=== PATIENT | male | born 1980 | race Caucasian/White ===

== ENCOUNTER → 2021-02-28 07:19 | Outpatient (CLI) | payer OTHER, SELFPAY ==
[2021-02-28 08:01] LABS: Add Manual Diff / Slide Review NO; Basophils Absolute Auto 0 /uL (0-100); Basophils Percent Auto 0.5 % (0-2); Eosinophils Absolute Auto 300 /uL (0-450); Eosinophils Percent Auto 5.5 % (2-4); Hematocrit 46.9 % (41-53); Hemoglobin 15.9 g/dL (13.5-17.5); Lymphocytes Absolute Auto 1800 /uL (1100-4500); Lymphocytes Percent Auto 31.7 % (25-40); Mean Corpuscular HGB Conc 33.9 % (30-36); Mean Corpuscular Hemoglobin 30.3 PG (26-34); Mean Corpuscular Volume 89.4 fL (80-100); Monocytes Absolute Auto 400 /uL (0-900); Monocytes Percent Auto 6.7 % (3-14); Neutrophils Absolute Auto 3100 /uL (1500-7000); Neutrophils Percent Auto 55.6 % (50-75); Platelet Count 286 X10^3/uL (150-400); Red Blood Cell Count 5.24 X10^6/uL (4.5-5.9); Red Cell Distribution Width 13.2 % (11.6-14.8); White Blood Cell Count 5.5 X10^3/uL (4.5-11.0)
[2021-02-28 08:11] LABS: Alanine Aminotransferase 22 IU/L (<50); Albumin 4.4 g/dL (3.5-5.0); Albumin Globulin Ratio 1.6 (1.0-2.8); Alkaline Phosphatase 58 U/L (38-126); Aspartate Aminotransferase 23 IU/L (17-59); BUN Creatinine Ratio 11.5 (6-22); Bilirubin Total 0.6 mg/dL (0.2-1.3); Blood Urea Nitrogen 11 mg/dL (9-20); Calcium 9.5 mg/dL (8.4-10.2); Carbon Dioxide 33 mmol/L (22-32); Chloride 100 mmol/L (98-107); Estimated Glomerular Filt Rate > 60.0 mL/min (>60); Globulin 2.8 g/dL (1.7-4.1); Glucose 140 mg/dL (70-100); HEMOLYSIS < 15 (0-50); Potassium 3.8 mmol/L (3.4-5.1); Sodium 139 mmol/L (137-145); Total Protein 7.2 g/dL (6.3-8.2)
[2021-02-28 08:26] LABS: Free T4, Direct Thyroxine 1.18 ng/dL (0.78-2.19)
[2021-02-28 08:40] LABS: Thyroid Stimulating Hormone 1.47 uIU/mL (0.47-4.68)
[2021-03-01 07:44] LABS: Triiodothyronine T3 Total 94 ng/dL (71-180)
== END ==
PROVIDERS: Referring Provider Physician Assistant; Visit Provider Physician Assistant
DX: R10.84 Generalized abdominal pain (principal); E05.90 Thyrotoxicosis, unspecified without thyrotoxic crisis or storm
CPT/HCPCS: 36415; 80053; 84439; 84443; 84480; 85025

== ENCOUNTER → 2021-04-12 16:45 | Outpatient (CLI) | payer OTHER, SELFPAY ==
[2021-04-12 17:45] LABS: Hemoglobin A1C% w Est Avg Glu 5.2 % (4.0-6.0)
== END ==
PROVIDERS: PCP Physician Assistant; Referring Provider Physician Assistant; Visit Provider Physician Assistant
DX: R73.9 Hyperglycemia, unspecified (principal)
CPT/HCPCS: 36415; 83036

== ENCOUNTER → 2021-08-17 10:00 | Outpatient (CLI) | payer OTHER, SELFPAY ==
--- NOTE | 2021-08-17 10:02 | DI.RAD.S_ITS ---
PROCEDURE: XR CHEST 2V INDICATIONS: ABNORMAL ekg READING TECHNIQUE: 2 views of the chest were acquired. COMPARISON: None. FINDINGS: Surgical changes and devices: None. Lungs and pleura: Lungs are clear. No pleural effusions or pneumothorax. Mediastinum: Mediastinal contours are normal. Heart size is normal. Bones and chest wall: No suspicious bony abnormalities. Soft tissues appear unremarkable. IMPRESSION: Normal two view chest x-ray Approved by: Skip Rosas M.D. on 08/17/2021 at 12:37
[2021-08-17 10:46] LABS: Troponin I < 0.012 ng/mL (0.01-0.034)
== END ==
PROVIDERS: PCP Student in an Organized Health Care Education/Training Program; Referring Provider Student in an Organized Health Care Education/Training Program; Visit Provider Student in an Organized Health Care Education/Training Program
DX: R94.31 Abnormal electrocardiogram [ECG] [EKG] (principal)
CPT/HCPCS: 71046; 84484

== ENCOUNTER 2021-08-17 15:57 | Emergency (ER) | payer OTHER, SELFPAY ==
[2021-08-17] VITALS (8 sets, daily range): BP systolic 116–151; BP diastolic 81–89; PULSE 75–103; RESP 12–20; TEMP 37; O2SAT 90–97; BMI 25.6
[2021-08-17 17:14] LABS: Add Manual Diff / Slide Review NO; Basophils Absolute Auto 0 /uL (0-100); Basophils Percent Auto 0.2 % (0-2); Eosinophils Absolute Auto 100 /uL (0-450); Eosinophils Percent Auto 1.3 % (2-4); Hematocrit 45.4 % (41-53); Hemoglobin 15.5 g/dL (13.5-17.5); Lymphocytes Absolute Auto 1600 /uL (1100-4500); Lymphocytes Percent Auto 14.4 % (25-40); Mean Corpuscular HGB Conc 34.2 % (30-36); Mean Corpuscular Hemoglobin 30.4 PG (26-34); Mean Corpuscular Volume 88.7 fL (80-100); Monocytes Absolute Auto 800 /uL (0-900); Monocytes Percent Auto 7.4 % (3-14); Neutrophils Absolute Auto 8500 /uL (1500-7000); Neutrophils Percent Auto 76.7 % (50-75); Platelet Count 297 X10^3/uL (150-400); Red Blood Cell Count 5.12 X10^6/uL (4.5-5.9); White Blood Cell Count 11.1 X10^3/uL (4.5-11.0)
[2021-08-17 17:23] LABS: Alanine Aminotransferase 22 IU/L (<50); Albumin 4.7 g/dL (3.5-5.0); Albumin Globulin Ratio 1.4 (1.0-2.8); Alkaline Phosphatase 68 U/L (38-126); Aspartate Aminotransferase 27 IU/L (17-59); BUN Creatinine Ratio 13.8 (6-22); Bilirubin Total 0.8 mg/dL (0.2-1.3); Blood Urea Nitrogen 12 mg/dL (9-20); Calcium 9.4 mg/dL (8.4-10.2); Carbon Dioxide 28 mmol/L (22-32); Chloride 105 mmol/L (98-107); Creatine Kinase 57 U/L (55-170); Estimated Glomerular Filt Rate > 60.0 mL/min (>60); Globulin 3.3 g/dL (1.7-4.1); Glucose 109 mg/dL (70-100); HEMOLYSIS < 15 (0-50); Lipase 122 U/L (23-300); Magnesium 2.1 mg/dL (1.6-2.3); Potassium 3.9 mmol/L (3.4-5.1); Sodium 141 mmol/L (137-145)
[2021-08-17 17:35] LABS: Troponin I < 0.012 ng/mL (0.01-0.034)
--- NOTE | 2021-08-17 17:44 | PC.NURSE ---
returning from the restroom, where she had to ambulate about [address]
--- NOTE | 2021-08-17 17:54 | ED_ITS ---
HPI - Chest Pain General Chief Complaint: Chest Pain Stated Complaint: chest pain, abn ekg this am Time Seen by Provider: 08/17/21 17:44 Source: patient Mode of arrival: Ambulatory Limitations: no limitations Limitations: no limitations History of Present Illness HPI narrative: The patient was seen this morning by his PCM for an annual physical. He mentioned to his doctor that he has occasional very brief sharp stabbing pain in the left anterior chest. There are concerns raised about an EKG in clinic. He has a stress test scheduled for tomorrow. He has no history of CAD. He has a history of hyperthyroidism, he is now off medications. He has no hypertension, diabetes or hyperlipidemia. He does not use tobacco. weeks ago he started running 1 mi daily, he has no dyspnea or chest discomfort when running. He is currently in the process of buying a house. After going home from the physical he developed tightness in his anterior chest. There was some radiation discomfort to the left arm. He thinks this may be stress. Pain lasted 15-20 minutes. He is now asymptomatic. He denies recent illness. He has ongoing concerns about his hyperthyroidism but he has no other clinical issues of which is where. Related Data Allergies Allergy/AdvReac Type Severity Reaction Status Date / Time No Known Drug Allergies Allergy Verified 08/17/21 16:03 Review of Systems Constitutional Constitutional: Reports as per HPI, Denies chills, Denies fever(s) and Denies headache(s) Eyes Eyes: Denies blurry vision and Denies change in vision ENT Ears, Nose, Mouth, and Throat: Denies vertigo, Denies dizziness, Denies facial pain, Denies headache(s), Denies neck pain, Denies sinus pressure and Denies sore throat Cardiovascular Cardiovascular: Reports as per HPI, Reports chest pain, Denies syncope, Denies rapid heart rate, Denies edema, Denies lightheadedness and Denies dyspnea Respiratory Respiratory: Denies chest congestion and Denies dyspnea Gastrointestinal Gastrointestinal: Denies abdominal pain and Denies nausea Comments: No history of GERD. Musculoskeletal Musculoskeletal: Denies back pain, Denies myalgias and Denies neck pain Integumentary/Breasts Skin/Breast: Denies rash Neurologic Neurologic: Denies confusion, Denies vertigo, Denies dizziness, Denies syncope and Denies headache(s) Psychiatric Psychiatric: Denies anxiety and Denies confusion Hematologic/Lymphatic On Anticoagulants: No Patient History Medical History (Updated 08/17/21 @ 18:03 by Aaron Benavides MD) Hyperthyroidism Surgical History (Updated 08/17/21 @ 17:58 by Aaron Benavides MD) No significant past surgical history Social History Smoking Status: Never smoker Smoking Status: Never smoker alcohol intake frequency: 0-2 drinks per day Alcohol type: beer Substance Use Type: does not use Exam Initial Vital Signs Initial Vital Signs: Vital Signs Temperature 98.6 F 08/17/21 15:59 Pulse Rate 89 08/17/21 15:59 Respiratory Rate 18 08/17/21 15:59 Blood Pressure 129/89 08/17/21 15:59 Pulse Oximetry 96 08/17/21 15:59 Const General: cooperative, healthy appearing, comfortable and No acute distress Nutritional Appearance: average body habitus HENMT Head: normal to inspection, normocephalic and atraumatic Face and sinus: normal facial exam Mouth: oral mucosae normal Throat: posterior oropharynx normal Eyes General: appearance normal, both eyes and all related structures Pupils: PERRL EOM: EOM intact bilaterally Neck Neck: normal visual inspection and No JVD Thyroid: thyroid normal Chest Chest: No tenderness Resp Effort & Inspection: normal respiratory effort Auscultation: clear to auscultation bilaterally Cardio Rate: regular rate Rhythm: regular rhythm Heart Sounds: S1 normal, S2 normal, no murmurs and no rubs Pulses: brachial pulses present GI Inspection: normal to inspection Palpation: soft and No no hepatosplenomegaly Back/Spine/Pelvis Back: normal to inspection Skin General: no rashes or lesions noted Neuro General: patient alert, patient awake, patient oriented x3 and no focal motor deficits Extrem General: normal to inspection, full ROM, no pedal edema and no calf tenderness Psych Mental Status: mental status grossly normal Course Course Course Narrative: Cardiac evaluation is benign. EKG is normal. His chest discomfort is vague, he suggest anxiety may be involved. His PCM has apparently made arrangements for stress test. I did start him on aspirin prior to discharge. Orders Ordered: Discontinued Medications Aspirin (Aspirin 81 Mg Chew Tab) 324 mg PO NOW ONE Stop: 08/17/21 17:54 Last Admin: 04/06/22 18:19 Dose: 324 mg Documented by: TREVON Vital Signs Vital signs: Vital Signs - 8 hr 08/17/21 15:59 08/17/21 16:19 08/17/21 16:20 Temperature 98.6 F Pulse Rate 89 103 H 94 H Respiratory Rate 18 Blood Pressure 129/89 151/88 H Pulse Oximetry 96 96 97 08/17/21 16:30 08/17/21 17:00 08/17/21 17:20 Temperature Pulse Rate 81 83 Respiratory Rate 12 15 20 Blood Pressure 121/81 116/84 Pulse Oximetry 96 95 90 L 08/17/21 17:30 Temperature Pulse Rate 81 Respiratory Rate 14 Blood Pressure 128/81 Pulse Oximetry 96 MDM - Chest Pain Lab Data Result diagrams: 08/17/21 16:55 08/17/21 16:55 Labs: Lab Results 08/17/21 08/17/21 Range/Units 16:55 16:55 WBC 11.1 H (4.5-11.0) X10^3/uL RBC 5.12 (4.5-5.9) X10^6/uL Hgb 15.5 (13.5-17.5) g/dL Hct 45.4 (41-53) % MCV 88.7 (80-100) fL MCH 30.4 (26-34) PG MCHC 34.2 (30-36) % RDW 14.0 (11.6-14.8) % Plt Count 297 (150-400) X10^3/uL Neut % (Auto) 76.7 H (50-75) % Lymph % (Auto) 14.4 L (25-40) % [place] % (Auto) 7.4 (3-14) % Eos % (Auto) 1.3 L (2-4) % Baso % (Auto) 0.2 (0-2) % Neut # (Auto) 8500 H (1847-6956) /uL Lymph # (Auto) 1600 (8427-4738) /uL [place] # (Auto) 800 (0-900) /uL Eos # (Auto) 100 (0-450) /uL Baso # (Auto) 0 (0-100) /uL Sodium 141 (137-145) mmol/L Potassium 3.9 (3.4-5.1) mmol/L Chloride 105 (98-107) mmol/L Carbon Dioxide 28 (22-32) mmol/L BUN 12 (9-20) mg/dL Creatinine 0.87 (0.66-1.25) mg/dL Estimated GFR > 60.0 (>60) mL/min BUN/Creatinine Ratio 13.8 (6-22) Glucose 109 H (70-100) mg/dL Calcium 9.4 (8.4-10.2) mg/dL Magnesium 2.1 (1.6-2.3) mg/dL Total Bilirubin 0.8 (0.2-1.3) mg/dL AST 27 (17-59) IU/L ALT 22 (<50) IU/L Alkaline Phosphatase 68 (38-126) U/L Total Creatine Kinase 57 (55-170) U/L CK-MB (CK-2) TNP CK-MB (CK-2) Rel Index TNP Troponin I < 0.012 (0.01-0.034) ng/mL Total Protein 8.0 (6.3-8.2) g/dL Albumin 4.7 (3.5-5.0) g/dL Globulin 3.3 (1.7-4.1) g/dL Albumin/Globulin Ratio 1.4 (1.0-2.8) Lipase 122 (23-300) U/L Imaging Data Chest x-ray: Radiologist's Impression: Normal ECG Data Attestation: I personally reviewed and interpreted this ECG as follows: (Normal sinus rhythm rate 91 beats per minute. Normal intervals. No ectopy. No acute ST T wave changes.) Discharge Plan Departure Patient Disposition: Home Clinical Impression: Atypical chest pain Instructions: DI for Atypical Chest Pain Activity Restrictions/Additional Instructions: Your current cardiac evaluation shows no evidence of CAD, heart attack. I recommend 1 baby aspirin daily. Your are correct stress/anxiety may account for some of your symptoms. I would not jump to that conclusion, however. The stress test scheduled for tomorrow is quite important. This should clearly define whether or not you have an issue with your heart. If you have return of chest discomfort prior to doing your test more, return the ER for ongoing evaluation. Referrals: Wendy Walker MD [Primary Care Provider] -
[2021-08-17] MEDS: ASPIRIN 81 MG CHEW TAB 324 MG PO (18:19)
== END 2021-08-17 18:28 | disposition home or self-care (01) ==
PROVIDERS: Emergency Medicine; Emergency Provider Emergency Medicine; PCP Student in an Organized Health Care Education/Training Program
DX: R07.89 Other chest pain (principal); R94.31 Abnormal electrocardiogram [ECG] [EKG]
CPT/HCPCS: 36415; 71046; 80053; 82550; 83690; 83735; 84484; 85025; 93005; 93010; 99283; 99284

== ENCOUNTER 2021-08-21 19:31 | Emergency (ER) | payer OTHER, SELFPAY ==
[2021-08-21] VITALS (8 sets, daily range): BP systolic 123–164; BP diastolic 79–100; PULSE 77–97; RESP 12–24; TEMP 37.1; O2SAT 96–98; BMI 25.6
--- NOTE | 2021-08-21 20:04 | ED.CHESTPAIN ---
HPI - Chest Pain General Chief Complaint: Chest Pain Stated Complaint: poss. panic attack; lt arm heaviness/numbness Time Seen by Provider: 08/21/21 19:40 Source: patient Mode of arrival: Ambulatory Limitations: no limitations History of Present Illness HPI narrative: 41-year-old gentleman with a history of hyperthyroidism, increased psychosocial stress was in the process of buying house, getting back into prior workout routines and was seen by his primary care physician about a week ago. She made a comment about an EKG suggesting that he may have had a prior heart attack and has recommended a stress test to be set up. This is caused him significant anxiety and he is concerned that some of the transient musculoskeletal pain that he feels across his chest wall may be another heart attack. He has had episodes of increased anxiety generally not feeling well nausea burning all more noticeable since his more recent visit. He was seen in the emergency department on August 17 with similar complaints. Does not have a family history for heart disease is at an appropriate BMI, no prior diagnosis of heart disease, hypertension, hyperlipidemia or stroke. He notes that when he is concerned about the symptoms he is having he can become somewhat diaphoretic but he is not typically short of breath and none of this is impairing his usual daily activity. Related Data Allergies Allergy/AdvReac Type Severity Reaction Status Date / Time No Known Drug Allergies Allergy Verified 08/17/21 16:03 Review of Systems Review of Systems Narrative: Remainder of complete review of systems is otherwise unremarkable except for that included in the HPI. Patient History Medical History Hyperthyroidism Surgical History No significant past surgical history Social History Smoking Status: Never smoker Smoking Status: Never smoker alcohol intake frequency: 3 or more drinks per day Alcohol type: beer Substance Use Type: does not use Exam Initial Vital Signs Initial Vital Signs: Vital Signs Temperature 98.7 F 08/21/21 19:36 Pulse Rate 97 H 08/21/21 19:36 Respiratory Rate 20 08/21/21 19:36 Blood Pressure 164/99 H 08/21/21 19:36 Pulse Oximetry 96 08/21/21 19:36 General: Healthy appearing, in no acute distress. Able to give a complete and coherent history. Well-nourished well-developed HEENT: Moist mucous membranes, normal sclera with reactive pupils, Neck: No JVD, supple Respiratory: Lungs are clear to auscultation, no wheezing no rales no rhonchi. Full and symmetrical air movement Cardiac: Regular rate and rhythm no murmurs no bruits Abdomen: Soft, nontender, good bowel tones, no flank pain Skin: Warm and dry, no rashes Neurologic: Grossly neurologically intact with no obvious asymmetries or abnormalities Extremities: No trauma, well perfused Psych: Cooperative, appropriate insight and affect Course Orders Ordered: ED Orders 08/21/21 20:30 Trop I [Troponin I] Stat Vital Signs Vital signs: Vital Signs - 8 hr 08/21/21 22:00 08/21/21 22:15 Pulse Rate 79 78 Respiratory Rate 24 21 Blood Pressure 127/85 136/90 Pulse Oximetry 96 MDM - Chest Pain Lab Data Labs: Lab Results 08/21/21 Range/Units 20:30 Troponin I < 0.012 (0.01-0.034) ng/mL ECG Data Interpretation: Sinus rhythm at a rate of 90 Minor sinus arrhythmia Normal intervals and normal axis No acute ischemic changes MDM Narrative Medical decision making narrative: 41-year-old gentleman concerned with fleeting chest pain, nausea, dizziness after recent EKG that mentioned he may have had a heart attack. EKG today does not suggest prior ND. We did review extensively some of the small changes that can be seen on EKGs. I did encourage him to follow through with the cardiac stress test that is currently being ordered however I also reassured him that I do not believe this is his heart nor is he at immediate risk for an acute heart attack. Full blood workup was done on August 17 and was unremarkable. Troponin only is repeated today and is equally unremarkable. Reassurance is given, questions answered and he is safe for home discharge Discharge Plan Departure Patient Disposition: Home Clinical Impression: Atypical chest pain, Stress Instructions: Tips for Reducing Stress in Your Life, DI for Atypical Chest Pain Activity Restrictions/Additional Instructions: Thank you for coming in today Your physical exam, EKG and blood work were absolutely reassuring. I do not see any evidence of an acute heart attack this evening or a prior heart attack on the EKG done in the ER today. Given the workup that we have done so far I believe it is safe for you to continue your exercise routine. I would encourage you to look at callus willing resources that may be available to you through work. Considering other lifetime stress reduction choices such as meditation (there are a number of very good and free meditation apps available), massage, healthy eating choices and regular activity. If you have new or worsening symptoms, please feel free to return to the emergency department Referrals: Wendy Walker MD [Primary Care Provider] -
[2021-08-21 21:05] LABS: Troponin I < 0.012 ng/mL (0.01-0.034)
== END 2021-08-21 22:20 | disposition home or self-care (01) ==
PROVIDERS: Emergency Provider Emergency Medicine; PCP Student in an Organized Health Care Education/Training Program
DX: R07.89 Other chest pain (principal); F43.9 Reaction to severe stress, unspecified
CPT/HCPCS: 36415; 84484; 93005; 93010; 99283

== ENCOUNTER → 2021-09-20 15:01 | Outpatient (CLI) | payer OTHER, SELFPAY ==
--- NOTE | 2021-09-20 | DI.NM.S_ITS ---
PROCEDURE: NM EXERCISE TREADMILL NON NUC COMPARISON: None. INDICATIONS: Palpitations FINDINGS: Rest ECG sinus rhythm. Sukhi protocol 13:09, peak HR 197 bpm (109% of peak predicted), maximum BP 166/94, 14.8 METS, [place] -6%. Stress ECG sinus tachycardia, no ST segment changes, no ectopy or arrhythmias. No chest pain or anginal equivalents with exercise. IMPRESSION: No evidence of exercise-induced ischemia or arrhythmia on ECG. Good exercise capacity. Normal blood pressure response to exercise. Dictated by: Elin Solano D.O. on 09/21/2021 at 14:38 Approved by: Elin Solano D.O. on 09/21/2021 at 14:40
== END ==
PROVIDERS: PCP Student in an Organized Health Care Education/Training Program; Referring Provider Student in an Organized Health Care Education/Training Program; Visit Provider Student in an Organized Health Care Education/Training Program
DX: R00.2 Palpitations (principal)
CPT/HCPCS: 93017

== ENCOUNTER → 2021-10-07 08:04 | Outpatient (CLI) | payer OTHER, SELFPAY ==
--- NOTE | 2021-10-07 08:05 | DI.ECHO.S_ITS ---
[facility] +---------+ [facility] +---------+ : : [address] : : : : [id number] : : : : Phone: [phone]+ Echocardiogram Report + + :Name: GEORGIE EDWARDS Study Date: 10/07/2021 Height: 75 in : :[facility] ReadingLocation: Weight: 200 lb : : Gender: Male BSA: 2.2 m2 : :: 1980 Age: 41 yrs BP: 126/90 mmHg: :Reason For Study: Palpitations : :Ordering Physician: BERNARDO, : :BOBBY Performed By: Grover Gutierrez : :Referring: BOBBY CHANG : + + Interpretation Summary 1) Normal left ventricular thickness, size, wall motion, and systolic function (EF 55-60%). 2) Normal right ventricular size and function. 3) No significant valvular abnormalities. 4) No prior Echo available for comparison. Procedure: A two-dimensional transthoracic echocardiogram with color flow and Doppler was performed. The study quality was technically adequate. There is no prior echocardiogram noted for this patient. The patient was in normal sinus rhythm during the exam. Left Ventricle: The left ventricle is normal in size and wall thickness. Left ventricular systolic function is normal. The ejection fraction is estimated to be 55-60%. There are no focal wall motion abnormalities. Diastolic parameters suggest probable normal left ventricular diastolic function and normal filling pressures. Right Ventricle: The right ventricle is normal in size and function. Atria: Both atria are normal in size. The interatrial septum grossly appears intact with no obvious evidence for an atrial septal defect. Mitral Valve: The mitral valve is normal in structure and function. There is trace mitral regurgitation. Aortic Valve: The aortic valve is normal in structure and function. There is no aortic valve stenosis. No aortic regurgitation is present. Tricuspid Valve: The tricuspid valve is normal in structure and function. There is a trace or physiologic amount of tricuspid regurgitation. Pulmonary artery pressures cannot be estimated because of the lack of a measurable TR jet velocity. Pulmonic Valve: The pulmonic valve is normal in structure and function. There is a trace or physiologic amount of pulmonic regurgitation. Great Vessels: The aortic root is normal size. The dimensions of the ascending aorta are normal. The IVC is of normal diameter and collapses greater than 50% with a sniff. This suggests a low right atrial pressure of 3 mm Hg. Pericardium/ Pleura There is no pericardial effusion. There is no pleural effusion. MMode/2D Measurements & Calculations LVIDd: 5.1 cm LVOT diam: 2.3 cm LVIDs: 3.3 cm Ao root diam: 3.3 cm FS: 35.9 % asc Aorta Diam: 3.1 cm IVSd: 0.84 cm LVPWd: 0.93 cm LV loyola. diameter/BSA (cm/m^2): 2.3 LV sys. diameter/BSA (cm/m^2): 1.5 LA A2 area: 14.9 cm2 RA long axis: 4.1 cm LA A4 area: 12.8 cm2 RA area: 13.8 cm2 LA length (vol): 4.1 cm RA vol: 39.4 ml LA vol: 39.0 ml RA : 17.9 ml/m2 LA vol index: 17.8 ml/m2 TAPSE: 2.5 cm Doppler Measurements & Calculations Ao V2 max: 112.4 cm/sec LVOT Max Dima: 94.0 cm/sec Ao V2 mean: 79.3 cm/sec LV V1 max P.5 mmHg Ao max P.0 mmHg LV V1 VTI: 18.5 cm Ao mean P.8 mmHg LINA(I,D): 3.9 cm2 Ao V2 VTI: 19.5 cm LINA(V,D): 3.4 cm2 sev ratio: 0.95 LINA indexed to BSA (cm^2/m^2): 1.8 MV E max dima: 73.5 cm/sec SV(LVOT): 75.4 ml MV A max dima: 58.0 cm/sec MV E/A: 1.3 Med Peak E' Dima: 10.9 cm/sec E/E' med: 6.7 Lat Peak E' Dima: 13.6 cm/sec E/E' lat: 5.4 E/e' average: 6.1 MV dec time: 0.19 sec Reading Physician:10:02 AM
== END ==
PROVIDERS: PCP Student in an Organized Health Care Education/Training Program; Referring Provider Student in an Organized Health Care Education/Training Program; Visit Provider Student in an Organized Health Care Education/Training Program
DX: R00.2 Palpitations (principal)
CPT/HCPCS: 93306

== ENCOUNTER → 2023-06-01 17:04 | Outpatient (CLI) | payer OTHER, SELFPAY ==
[2023-06-01 18:19] LABS: Influenza A - CEPHEID Flu A NEGATIVE (NEGATIVE); Influenza B - CEPHEID Flu B NEGATIVE (NEGATIVE); Respiratory Syncytial Virus Negative (Negative)
[2023-06-01 18:20] LABS: COVID-19 CEPHEID 4-PLEX PCR POSITIVE (Negative)
== END ==
PROVIDERS: PCP Registered Nurse; Visit Provider Physician Assistant Medical
DX: J02.9 Acute pharyngitis, unspecified (principal); Z20.828 Contact with and (suspected) exposure to other viral communicable diseases
CPT/HCPCS: 0241U; 87070; 87077; 87147

== ENCOUNTER → 2024-04-25 12:36 | Outpatient (CLI) | payer OTHER, SELFPAY | PROVIDERS: PCP Registered Nurse; Referring Provider Nurse Practitioner Family; Visit Provider Nurse Practitioner Family | DX: J02.9 Acute pharyngitis, unspecified (principal) | CPT/HCPCS: 87070 ==

== ENCOUNTER → 2024-04-25 13:04 | Outpatient (CLI) | payer OTHER, SELFPAY ==
--- NOTE | 2024-04-25 13:06 | DI.RAD.S_ITS ---
PROCEDURE: XR CHEST 2V INDICATIONS: Cough TECHNIQUE: 2 views of the chest were acquired. COMPARISON: [facility], CR, XR CHEST 2V, 08/17/2021, 10:02. FINDINGS: Surgical changes and devices: None. Lungs and pleura: Lungs are clear. No pleural effusions or pneumothorax. Mediastinum: Mediastinal contours are normal. Heart size is normal. Bones and chest wall: No suspicious bony abnormalities. Soft tissues appear unremarkable. IMPRESSION: No acute cardiopulmonary abnormality is seen. Dictated by: Pino Rahman M.D. on 04/25/2024 at 15:19 Approved by: Pino Rahman M.D. on 04/25/2024 at 15:20
== END ==
PROVIDERS: PCP Registered Nurse; Referring Provider Nurse Practitioner Family; Visit Provider Nurse Practitioner Family
DX: J02.9 Acute pharyngitis, unspecified (principal); R05.9 Cough, unspecified
CPT/HCPCS: 71046; 87070

== ENCOUNTER → 2024-12-01 15:52 | Outpatient (CLI) | payer OTHER, SELFPAY ==
[2024-12-01 16:48] LABS: Hematocrit 47.4 % (41-53); Hemoglobin 16.2 g/dL (13.5-17.5); Mean Corpuscular HGB Conc 34.3 % (30-36); Mean Corpuscular Hemoglobin 30.8 PG (26-34); Mean Corpuscular Volume 89.9 fL (80-100); Platelet Count 339 X10^3/uL (150-400)
[2024-12-01 17:14] LABS: Alanine Aminotransferase 20 IU/L (<50); Albumin 4.9 g/dL (3.5-5.0); Albumin Globulin Ratio 1.6 (1.0-2.8); Alkaline Phosphatase 83 U/L (38-126); Blood Urea Nitrogen 14 mg/dL (9-20); Calcium 9.9 mg/dL (8.4-10.2); Carbon Dioxide 28 mmol/L (22-32); Chloride 101 mmol/L (98-107); Estimated Glomerular Filt Rate > 60 mL/min (>60); Globulin 3.0 g/dL (1.7-4.1); Glucose 99 mg/dL (70-99); HEMOLYSIS < 15 (0-50); Potassium 4.3 mmol/L (3.4-5.1); Sodium 139 mmol/L (137-145); Total Protein 7.9 g/dL (6.3-8.2)
== END ==
PROVIDERS: PCP Registered Nurse; Referring Provider Student in an Organized Health Care Education/Training Program; Visit Provider Student in an Organized Health Care Education/Training Program
DX: K52.3 Indeterminate colitis (principal); R14.0 Abdominal distension (gaseous)
CPT/HCPCS: 36415; 80053; 85027; 85651; 86140

== ENCOUNTER → 2024-12-02 07:06 | Outpatient (CLI) | payer OTHER, SELFPAY | PROVIDERS: PCP Registered Nurse; Referring Provider Student in an Organized Health Care Education/Training Program; Visit Provider Student in an Organized Health Care Education/Training Program | DX: K52.3 Indeterminate colitis (principal); R14.0 Abdominal distension (gaseous) | CPT/HCPCS: 83993; 87177 ==